=== PATIENT | female | born 1940 | race Hispanic/Latino ===

== ENCOUNTER → 2022-07-14 | Day surgery (SDC) | payer MEDICARE ==
[2022-07-10 10:59] LABS: BASOPHILS % 0.6 % (0.0-1.0); EOSINOPHILS # (AUTO) 0.7 (0.0-0.4); EOSINOPHILS % 9.3 % (0.0-6.0); HEMATOCRIT 36.7 % (34.2-44.1); HEMOGLOBIN 12.3 g/dL (12.0-16.0); LYMPHOCYTES # (AUTO) 2.7 (1.0-3.2); LYMPHOCYTES % 37.8 % (18.0-39.1); MEAN CORPUSCULAR HEMOGLOBIN 30.2 pg (28-32); MEAN CORPUSCULAR HGB CONC 33.5 g/dL (31-35); MEAN CORPUSCULAR VOLUME 90.2 fL (81-99); MONOCYTES # (AUTO) 0.4 (0.2-0.8); MONOCYTES % 5.1 % (4.4-11.3); NEUTROPHILS # (AUTO) 3.4 (2.1-6.9); NEUTROPHILS % 46.9 % (38.7-80.0); PLATELET COUNT 260 x10e3/uL (140-360); RED BLOOD COUNT 4.07 x10e6/uL (3.6-5.1); RED CELL DISTRIBUTION WIDTH 14.1 % (11.7-14.4)
[~2022-07-14] MED LIST: ACETAMINOPHEN-1 EAC4 PO; ASA81 MG PO; B-121000 MC2; BUPIVACAINE HCL 0.5% INJ 30 ML VIAL INJ ONE; FEROSUL325 MG PO; FISH OIL 1,001000 M1; LACTATED RINGER'S 1,000 ML ONE; MECLIZINE HCL12.5 MG PO; MULTI-VITAMIN1 EACH PO; MUPIROCIN 2% OINT 22 GM TUBE ONE; Z VITAMIN D PO; Z.0.DETROL LA4 MG PO; [UNRECOGNIZED DRUG - OTHER] PO
[2022-07-14 07:50] VITALS: TEMP 97.6
[2022-07-14 08:20] VITALS: BP 119/57; PULSE 65; RESP 14; O2SAT 98
== END | disposition home or self-care (01) ==
LOC: OR 05:30 → EDSTATUS 07:30
PROVIDERS: ATTEND Plastic Surgery
DX: M65.342 Trigger finger, left ring finger (principal); R73.03 Prediabetes; E78.5 Hyperlipidemia, unspecified; K21.9 Gastro-esophageal reflux disease without esophagitis; Z79.82 Long term (current) use of aspirin; Z79.899 Other long term (current) drug therapy
CPT/HCPCS: 26055; 36415; 71046; 85025; 93005; J0690; J7121

== ENCOUNTER → 2023-12-01 | Outpatient (REF) | payer MEDICARE ==
[~2023-12-01] MED LIST changes: -BUPIVACAINE HCL 0.5% INJ 30 ML VIAL INJ ONE; -LACTATED RINGER'S 1,000 ML ONE; -MUPIROCIN 2% OINT 22 GM TUBE ONE
== END ==
LOC: RAD 11:07
PROVIDERS: ATTEND Internal Medicine
DX: M71.351 Other bursal cyst, right hip (principal)